=== PATIENT | female | born 1995 | race Hispanic/Latino ===

== ENCOUNTER 2017-07-13 03:14 | Emergency (ER) | payer MEDICAID, OTHER ==
[2017-07-13 04:08] LABS: BASOPHILS % (AUTO) 0.2 % (0.0-5.0); HEMATOCRIT 43.6 % (36-48); LYMPHOCYTES % (AUTO) 6.3 % (21.0-51.0); MEAN CORPUSCULAR HEMOGLOBIN 28.5 pg (27.0-33.0); MEAN CORPUSCULAR HGB CONC 33.8 g/dL (32.0-36.0); MEAN CORPUSCULAR VOLUME 84.4 fL (79-99); MONOCYTES % (AUTO) 4.1 % (3.0-13.0); NEUTROPHILS % (AUTO) 88.4 % (40.0-77.0); PLATELET COUNT (AUTO) 284 K/uL (130-400); RED BLOOD CELL COUNT(AUTO) 5.17 MIL/uL (4.00-5.50); RED CELL DISTRIBUTION WIDTH 13.8 % (11.0-15.5); WHITE BLOOD COUNT (AUTO) 13.9 K/uL (4.8-10.8)
[2017-07-13 04:19] LABS: CREATININE 0.8 mg/dL (0.5-1.5); POTASSIUM 3.7 mmol/L (3.5-5.1)
[2017-07-13 04:23] LABS: ALBUMIN 4.3 g/dL (3.5-5.0); BILIRUBIN,TOTAL 0.8 mg/dL (0.2-1.0); TOTAL PROTEIN, SERUM 8.6 g/dL (6.0-8.3)
[2017-07-13] MEDS ORDERED: ONDANSETRON ODT 4 MG TAB ONE (04:51)
[2017-07-13 06:04] LABS: APPEARANCE,URINE Clear (CLEAR); BILIRUBIN,URINE Negative (NEGATIVE); COLOR,URINE Yellow (YELLOW); GLUCOSE, URINE (UA) Negative (NEGATIVE); KETONES,URINE Trace mg/dL (NEGATIVE); LEUKOCYTE ESTERASE ,URINE Trace (NEGATIVE); NITRATE,URINE Negative (NEGATIVE); OCCULT BLOOD,URINE Negative (NEGATIVE); PH,URINE >=9.0 (5.0-8.0); PROTEIN,URINE POS 1+ (NEGATIVE)
[2017-07-13 06:06] LABS: HCG,QUAL RESULT NEGATIVE (NEGATIVE)
[2017-07-13 06:14] LABS: BACTERIA,URINE Few /HPF (None Seen); MUCUS,URINE Moderate LPF (None Seen); RBC,URINE 0-1 /HPF (0-1); SQUAMOUS EPITHELIAL CELL,UR Few /LPF (0-2)
== END 2017-07-13 06:56 | disposition home or self-care (01) ==
LOC: EDH 03:14
DX: T62.8X1A Toxic effect of other specified noxious substances eaten as food, accidental (unintentional), initial encounter (principal); E86.0 Dehydration; Z90.49 Acquired absence of other specified parts of digestive tract; Z98.890 Other specified postprocedural states; Y92.89 Other specified places as the place of occurrence of the external cause
CPT/HCPCS: 36415; 80053; 81001; 81025; 83690; 85025; 96360

== ENCOUNTER 2018-04-09 19:53 | Emergency (ER) | payer MEDICAID ==
[2018-04-09] MEDS ORDERED: TETRACAINE HCL 0.5% 4 ML OPHTH SOLN ONE (20:22)
[2018-04-09] MEDS ORDERED: NA BORATE/BORIC AC/H2O/NACL 120 ML OPHTH IRRIG SOLN ONE (20:23)
[2018-04-09] MEDS ORDERED: FLUORESCEIN SODIUM 0.6 MG STRIP ONE (20:23)
[2018-04-09] MEDS ORDERED: GENTAMICIN SULFATE 0.3% 5ML DROPS ONE (20:36)
== END 2018-04-09 20:50 | disposition home or self-care (01) ==
LOC: EDH 19:53
DX: S05.02XA Injury of conjunctiva and corneal abrasion without foreign body, left eye, initial encounter (principal); R09.81 Nasal congestion; Z90.49 Acquired absence of other specified parts of digestive tract; X58.XXXA Exposure to other specified factors, initial encounter; Y93.89 Activity, other specified; Y92.89 Other specified places as the place of occurrence of the external cause; Y99.8 Other external cause status

== ENCOUNTER 2021-02-19 05:58 | Day surgery (SDC) | payer MEDICAID ==
[2021-02-18 15:37] LABS: BASOPHILS % (AUTO) 0.6 % (0.0-5.0); EOSINOPHILS % (AUTO) 4.9 % (0.0-8.0); HEMATOCRIT 40.9 % (36-48); LYMPHOCYTES % (AUTO) 34.2 % (21.0-51.0); MEAN CORPUSCULAR HEMOGLOBIN 28.7 pg (27.0-33.0); MEAN CORPUSCULAR VOLUME 89.7 fL (79-99); MONOCYTES % (AUTO) 5.4 % (3.0-13.0); NEUTROPHILS % (AUTO) 54.6 % (40.0-77.0); PLATELET COUNT (AUTO) 311 K/uL (130-400); RED BLOOD CELL COUNT(AUTO) 4.56 MIL/uL (4.00-5.50); RED CELL DISTRIBUTION WIDTH 13.8 % (11.0-15.5); WHITE BLOOD COUNT (AUTO) 8.7 K/uL (4.8-10.8)
[2021-02-18 15:54] VITALS: BP 138/81
[2021-02-19] VITALS (18 sets, daily range): BP systolic 111–131; BP diastolic 57–89
[~2021-02-19] VITALS: Ht 165.1 cm; Wt 87.5 kg
[2021-02-19] MEDS ORDERED: LACTATED RINGERS 1000ML 1,000 ML IV ONE (06:21)
[2021-02-19] MEDS ORDERED: PROPOFOL 10 MG/ML 20ML VIAL IV ONE (06:59)
[2021-02-19] MEDS ORDERED: FENTANYL CITRATE PF 50 MCG/1 ML 2ML VIAL ONE ×2 (07:00→07:25)
[2021-02-19] MEDS ORDERED: MIDAZOLAM HCL 1 MG/ML 2ML VIAL ONE ×2 (07:00→07:13)
[2021-02-19] MEDS ORDERED: LIDOCAINE PF 100MG/5ML (2%) SYRINGE 5ML ONE (07:01)
[2021-02-19] MEDS ORDERED: SUCCINYLCHOLINE 200MG/10ML SYR ONE (07:01)
[2021-02-19] MEDS ORDERED: ROCURONIUM 10MG/1ML SYR 10 MG/ML ML ONE (07:08)
[2021-02-19] MEDS ORDERED: DEXAMETHASONE SOD PHOSPHATE 10MG/ML 1ML VIAL ONE (07:29)
[2021-02-19] MEDS ORDERED: ONDANSETRON 4MG INJ ONE (07:30)
[2021-02-19] MEDS ORDERED: PHENYLEPHRINE HCL 10 MG/ML 1ML VIAL IV ONE (07:42)
[2021-02-19] MEDS ORDERED: LACTATED RINGERS 1000ML 1,000 ML IV SCH (08:00)
== END 2021-02-19 09:50 | disposition home or self-care (01) ==
LOC: DAH 05:58
PROVIDERS: ATTEND Obstetrics & Gynecology
DX: Z30.2 Encounter for sterilization (principal); Z79.899 Other long term (current) drug therapy
CPT/HCPCS: 36415; 58661; 84703; 85025; 86850; 86900; 86901; 87635; A4215 ×2; A4221; A4222; A4223; A4351; A4452; A4606; A4663; A6260; C1769 ×2; C9803; J0330; J1100; J2250 ×2; J2370; J2405; J3010 ×2; J3490 ×2; J7120; J2001; J2704

== ENCOUNTER 2021-07-31 01:08 | Emergency (ER) | payer MEDICAID ==
[~2021-07-31] VITALS: Ht 165.1 cm; Wt 85.3 kg
[2021-07-31] MEDS ORDERED: ONDANSETRON 4MG INJ ONE (01:40)
[2021-07-31 02:21] LABS: BASOPHILS % (AUTO) 0.3 % (0.0-5.0); EOSINOPHILS % (AUTO) 1.1 % (0.0-8.0); LYMPHOCYTES % (AUTO) 4.5 % (21.0-51.0); MEAN CORPUSCULAR HEMOGLOBIN 29.5 pg (27.0-33.0); MEAN CORPUSCULAR VOLUME 86.9 fL (79-99); MONOCYTES % (AUTO) 4.2 % (3.0-13.0); NEUTROPHILS % (AUTO) 89.4 % (40.0-77.0); PLATELET COUNT (AUTO) 353 K/uL (130-400); RED BLOOD CELL COUNT(AUTO) 4.95 MIL/uL (4.00-5.50); RED CELL DISTRIBUTION WIDTH 13.2 % (11.0-15.5); WHITE BLOOD COUNT (AUTO) 19.9 K/uL (4.8-10.8)
[2021-07-31 02:23] LABS: APPEARANCE,URINE Clear (CLEAR); BILIRUBIN,URINE Negative (NEGATIVE); COLOR,URINE Yellow (YELLOW); GLUCOSE, URINE (UA) Negative (NEGATIVE); KETONES,URINE >=80 mg/dL (NEGATIVE); LEUKOCYTE ESTERASE ,URINE Trace (NEGATIVE); NITRATE,URINE Negative (NEGATIVE); OCCULT BLOOD,URINE Negative (NEGATIVE); PROTEIN,URINE Trace mg/dL (NEGATIVE)
[2021-07-31 02:24] LABS: CREATININE 0.7 mg/dL (0.5-1.5); POTASSIUM 3.5 mmol/L (3.5-5.1)
[2021-07-31 02:26] LABS: HCG,QUAL RESULT NEGATIVE (NEGATIVE)
[2021-07-31 02:29] LABS: ALBUMIN 4.2 g/dL (3.5-5.0); BILIRUBIN,TOTAL 0.7 mg/dL (0.2-1.0); TOTAL PROTEIN, SERUM 8.3 g/dL (6.0-8.3)
[2021-07-31] MEDS ORDERED: PANTOPRAZOLE 40 MG/VIAL IVP ONE (02:30)
[2021-07-31] MEDS ORDERED: METOCLOPRAMIDE 10 MG/2 ML VIAL IVP ONE (02:30)
[2021-07-31] MEDS ORDERED: 0.9%NACL 1000ML 1,000 ML IV ONE ×2 (02:30→03:30)
[2021-07-31] MEDS ORDERED: FAMOTIDINE 20MG VIAL IV ONE (02:30)
[2021-07-31 03:09] LABS: BACTERIA,URINE None Seen /HPF (None Seen); MUCUS,URINE Rare LPF (None Seen); RBC,URINE None Seen /HPF (0-1); SQUAMOUS EPITHELIAL CELL,UR Moderate /HPF (0-2); WBC,URINE 0-1 /HPF (0-1)
[2021-07-31] MEDS ORDERED: HYOSCYAMINE SULFATE 0.125 MG TAB.SUBL SL ONE (03:30)
[2021-07-31] MEDS ORDERED: HYOS-28 PO (04:00)
[2021-07-31] MEDS ORDERED: METO-296 PO (04:00)
[2021-07-31] MEDS ORDERED: DICY20TA2 PO (04:00)
[2021-07-31] MEDS ORDERED: ONDA4TAB10 PO (04:00)
[2021-07-31 04:04] VITALS: BP 117/72
== END 2021-07-31 05:07 | disposition home or self-care (01) ==
LOC: EDH 01:08
DX: E86.9 Volume depletion, unspecified (principal); R19.7 Diarrhea, unspecified; R11.10 Vomiting, unspecified; Z90.49 Acquired absence of other specified parts of digestive tract
CPT/HCPCS: 36415; 80053; 81001; 81025; 83690; 85025; 96361; 96374; 96375; 99284; J2405; J2765; J7030 ×2; S0028; S0164; C9113; J3490

== ENCOUNTER 2021-08-18 21:58 | Emergency (ER) | payer MEDICAID ==
[~2021-08-18] VITALS: Ht 165.1 cm; Wt 86.2 kg
[~2021-08-18 21:58] MED LIST: DICY20TA2 PO; HYOS-28 PO; METO-296 PO; ONDA4TAB10 PO
[2021-08-18] MEDS ORDERED: METOCLOPRAMIDE 10 MG TABLET ONE (22:16)
[2021-08-18] MEDS ORDERED: ONDANSETRON ODT 4MG TAB ONE (22:16)
[2021-08-18 22:21] LABS: APPEARANCE,URINE Clear (CLEAR); BILIRUBIN,URINE Negative (NEGATIVE); COLOR,URINE Yellow (YELLOW); GLUCOSE, URINE (UA) Negative (NEGATIVE); KETONES,URINE 15 mg/dL (NEGATIVE); LEUKOCYTE ESTERASE ,URINE Trace (NEGATIVE); NITRATE,URINE Negative (NEGATIVE); OCCULT BLOOD,URINE Negative (NEGATIVE); PH,URINE 7.5 (5.0-8.0); PROTEIN,URINE Trace mg/dL (NEGATIVE)
[2021-08-18] MEDS ORDERED: LIDOCAINE HCL 2% VISCOUS 15 ML UDCUP ONE (22:22)
[2021-08-18] MEDS ORDERED: METOCLOPRAMIDE 10 MG/2 ML VIAL ONE (22:22)
[2021-08-18] MEDS ORDERED: MAG/ALUM/SIMETH 30 ML UDCUP ONE (22:22)
[2021-08-18 22:27] LABS: HCG,QUAL RESULT NEGATIVE (NEGATIVE)
[2021-08-18] MEDS ORDERED: LIDOCAINE HCL 2% VISCOUS 15 ML UDCUP PO ONE (22:30)
[2021-08-18] MEDS ORDERED: METOCLOPRAMIDE 10 MG/2 ML VIAL IM ONE (22:30)
[2021-08-18] MEDS ORDERED: MAG/ALUM/SIMETH 30 ML UDCUP PO ONE (22:30)
[2021-08-18 22:43] LABS: RBC,URINE 0-1 /HPF (0-1); WBC,URINE 0-1 /HPF (0-1)
[2021-08-18 22:46] LABS: BACTERIA,URINE Few /HPF (None Seen); MUCUS,URINE Few LPF (None Seen); SQUAMOUS EPITHELIAL CELL,UR Few /HPF (0-2)
[2021-08-18 22:49] VITALS: BP 133/78
[2021-08-18] MEDS ORDERED: ESOM20CA31 PO (22:50)
[2021-08-18] MEDS ORDERED: ONDA4TAB10 PO (22:50)
== END 2021-08-18 23:02 | disposition home or self-care (01) ==
LOC: EDH 21:58
DX: K29.70 Gastritis, unspecified, without bleeding (principal); R11.2 Nausea with vomiting, unspecified; Z90.49 Acquired absence of other specified parts of digestive tract
CPT/HCPCS: 81001; 81025; 96372; 99283; J2765